=== PATIENT | female | born 1960 | race Caucasian/White ===

== ENCOUNTER → 2023-01-06 | Day surgery (SDC) | payer BC ==
[~2023-01-06] MED LIST: ACYCLOVIR400 MG PO; CABERGOLINE0.5 MG PO; ESTRACE42.5 GM TOP; LACTATED RINGER'S 1,000 ML ONE; LIDOCAINE HCL 2% LOCAL INJ 5 ML SDV VIAL INJ ONE; METOCLOPRAMIDE HCL 10 MG/2ML VIAL ONE; POVIDONE IODINE 0.05% 0.05 % ML PO ONE; PROGESTERONE100 MG PO; PROPOFOL IV EMULSION 10 MG/ML 20 ML VIAL ONE
[2023-01-06 08:15] VITALS: BP 99/69; PULSE 67; RESP 18; O2SAT 95
== END | disposition home or self-care (01) ==
LOC: OR 05:48
PROVIDERS: ATTEND Internal Medicine Gastroenterology
DX: K29.70 Gastritis, unspecified, without bleeding (principal); K31.7 Polyp of stomach and duodenum; K20.90 Esophagitis, unspecified without bleeding; Z86.010 Personal history of colon polyps; K59.09 Other constipation; K62.89 Other specified diseases of anus and rectum; Z71.3 Dietary counseling and surveillance; R63.0 Anorexia; Z88.0 Allergy status to penicillin; Z01.810 Encounter for preprocedural cardiovascular examination; Z79.899 Other long term (current) drug therapy; Z68.25 Body mass index [BMI] 25.0-25.9, adult; Z87.19 Personal history of other diseases of the digestive system
CPT/HCPCS: 43239; 43450; 93005; C9113; J2001; J2704; J2765; J7121